=== PATIENT | female | born 1990 | race Caucasian/White ===

== ENCOUNTER 2016-06-01 13:54 | Outpatient (CLI) | payer MEDICAID ==
[~2016-06-01] VITALS: Ht 167.6 cm; Wt 81.6 kg
[2016-06-01] MEDS ORDERED: PREN1TAB62 PO (14:12)
[2016-06-01 14:14] VITALS: BP 120/60; PULSE 103; RESP 18; Ht 167.6 cm; Wt 81.6 kg
[2016-06-01 14:56] LABS: ADD UMIC YES; URINE BILIRUBIN (Dip) NEGATIVE (NEGATIVE); URINE BLOOD (Dip) NEGATIVE (NEGATIVE); URINE COLOR LT. YELLOW (YELLOW); URINE GLUCOSE (Dip) NEGATIVE (NEGATIVE); URINE KETONES (Dip) NEGATIVE (NEGATIVE); URINE LEUKOCYTE ESTERASE (Dip) TRACE (NEGATIVE); URINE NITRITE (Dip) NEGATIVE (NEGATIVE); URINE TOTAL PROTEIN (Dip) NEGATIVE (NEGATIVE); URINE UROBILINOGEN (Dip) 0.2 E.U./dL (0.1-1.0)
[2016-06-01 15:49] LABS: SQUAMOUS EPITHELIAL CELL,UR FEW; URINE RBCS 0-2 /HPF (0)
--- NOTE | 2016-06-01 16:37 | TRIAGE ---
OB Triage Datetime Report Generated by CPN: 06/01/2016 16:37 Datetime: 06/01/2016 16:00 Stage of : OB Triage Maternal Assessment Level of Consciousness: Fully Conscious Labor Evaluation Frequency: 1uc/hr Monitor Mode: External Duration (sec)2399: 50 Quality: Mild Resting Tone [place]: Relaxed Heart Rate Monitor Mode: ORDERS FOR LIMITED MONITORING Pain Assessment Pain Scale: 0 Pain Presence: None/Denies Pain Type: N/A Pain Goal: 3 Vaginal Exam Membrane Status: Intact Vaginal Bleeding: None Datetime: 06/01/2016 15:00 Stage of : OB Triage Maternal Assessment Level of Consciousness: Fully Conscious Labor Evaluation Frequency: NONE Monitor Mode: External Resting Tone [place]: Relaxed Heart Rate Monitor Mode: ORDERS FOR LIMITED MONITORING Pain Assessment Pain Scale: 0 Pain Presence: None/Denies Pain Type: N/A Pain Goal: 3 Vaginal Exam Membrane Status: Intact Vaginal Bleeding: None Datetime: 06/01/2016 14:11 Assessment Type: Triage Maternal Assessment Level of Consciousness: Fully Conscious DTR's/Clonus: DTRs 2+; No Clonus Headache: Denies Blurred Vision: No Respiratory Effort: Unlabored; Regular Rhythm; Equal Expansion Breath Sounds, Left: Clear and Equal Breath Sounds, Right: Clear and Equal Nausea/Vomiting: Denies RUQ Epigastric Pain: Denies Lower Extremities Edema: None Degree: None Upper Extremities Edema: None Degree: None Facial Edema: None Fall Risk Assessment History of Falling: (0) No Secondary Diagnosis: (0) No Ambulatory Aid: (0) Bedrest/Nurse Assist IV Therapy: (0) No Gait: (0) Normal/Bedrest/Immobile Mental Status: (0) Oriented to Own Ability Fall Score: 0 Fall Risk Score Definition: No Risk: No action required Datetime: 06/01/2016 14:10 Time of Arrival: 06/01/2016 13:50 EGA: 20.5 Arrived By: Ambulatory Arrived From: Home Chief Complaint: C/O CRAMPS SINCE 0600 Movement: Present Contractions: Irregular Rupture of Membranes: Denies Vaginal Bleeding: None Vaginal Discharge: Denies Recent Sexual Intercouse: Denies Abdominal Trauma: Not Applicable Patient Complaints: Cramping; Back Pain Time Provider Notified: 06/01/2016 14:25 Provider Notified: ALPA Initial Plan: UA, UCED, FHT'S, Datetime: 06/01/2016 14:05 Comments: FHT'S DOPPLED IN THE 150'S FOR 1 MINUTE.
--- NOTE | 2016-06-01 16:43 | PN ---
Date/Time of Note Date/Time of Note DATE: 06/01/16 TIME: 16:40 OB Subjective Subjective Subjective Laboratory Tests Test 06/01/16 14:00 Urine Bilirubin NEGATIVE Urine Clarity CLEAR Urine Color LT. YELLOW Urine Glucose NEGATIVE% Urine Hemoglobin NEGATIVE Urine Ketones NEGATIVE Urine Leukocyte Esterase TRACE Urine Microscopic RBC 0-2/HPF Urine Microscopic WBC 0-2/HPF Urine Nitrite NEGATIVE Urine Specific [place] 1.020 Urine Squamous Epithelial Cells FEW Urine Total Protein NEGATIVE Urine Urobilinogen 0.2 E.U./dL Urine pH 6.0 June 01, 2016 Triage consult The patient is 26 years old 4 para 0 3, with EDC of 10/15/2016 which makes her 20 weeks and 4 days now. She came to the triage area complaining of abdominal cramping no bleeding no excessive vaginal discharge on examination her ear nose throat appear to be normal neck is normal chest is clear abdomen is soft no evidence of contraction or tenderness however her areas of tenderness was described as epigastric as well as the lower abdomen. However on palpation we did not see any sign of tenderness her vital signs were stable blood pressure 120/60 pulse rate 103 temperature 98.9 test at the wound reactive urinalysis was normal placenta appears to be normal place no previa. The cervical length was 3.4 cm. With these finding patient was reassured and she was discharged home to be followed in the clinic . To return to the triage area in case of a again abdominal pain or vaginal bleeding End of dictation thank you DALIA GIRALDO MD Jun 01, 2016 16:43
--- NOTE | 2016-06-01 16:58 | RADRPT ---
PROCEDURE: Limited obstetric ultrasound CLINICAL INDICATION: labor TECHNIQUE: Multiple transverse and longitudinal grayscale images of the pelvis were obtained lazo sabdominally and endovaginally.. COMPARISON: same day FINDINGS: There is a single live intrauterine gestation in a vertex position with a heart rate of 139 bp m. The placenta is posterior without evidence of placental abruption or a placenta previa. The cervix is closed and measures 3.4 cm in length. RPTAT: AA IMPRESSION: Posterior placenta. The cervix is closed and measures 3.4 cm in length. Physician Ashley Date Time Electronically viewed and signed by Physician Ashley on 06/01/2016 16:58 /
== END 2016-06-01 16:45 | disposition home or self-care (01) ==
LOC: OBT 13:54 → L-D 13:55 → OBT 16:45
PROVIDERS: ATTEND Obstetrics & Gynecology
DX: O26.892 Other specified pregnancy related conditions, second trimester (principal); R10.13 Epigastric pain; R10.30 Lower abdominal pain, unspecified; O60.02 Preterm labor without delivery, second trimester; Z3A.20 20 weeks gestation of pregnancy
CPT/HCPCS: 76815; 76817; 81001; 81003; 87086; Z7500; G0463

== ENCOUNTER 2016-08-01 10:50 | Emergency (ER) | payer MEDICAID ==
[~2016-08-01] VITALS: Wt 84.5 kg
[~2016-08-01 10:50] MED LIST: PREN1TAB62 PO
[2016-08-01 11:53] LABS: ADD SCAN DIFF NO
[2016-08-01 12:00] LABS: ABNORMAL IP MESSAGE 1; BASOPHILS % 0.2 % (0.0-2.0); EOSINOPHILS % 0.3 % (0.0-7.0); HEMATOCRIT 34.5 % (37.0-47.0); HEMOGLOBIN 10.6 g/dl (12.0-16.0); LYMPHOCYTES # 2.1 10^3/ul (0.8-2.9); LYMPHOCYTES % 23.9 % (15.0-51.0); MEAN CORPUSCULAR HEMOGLOBIN 26.2 pg (29.0-33.0); MEAN CORPUSCULAR HGB CONC 30.7 g/dl (32.0-37.0); MEAN CORPUSCULAR VOLUME 85.4 fl (82.0-101.0); MEAN PLATELET VOLUME 12.5 fl (7.4-10.4); MONOCYTE # 0.5 10^3/ul (0.3-0.9); MONOCYTES % 6.3 % (0.0-11.0); NEUTROPHIL # 5.8 10^3/ul (1.6-7.5); NEUTROPHILS % 68.1 % (39.0-77.0); PLATELET COUNT 93 10^3/UL (140-415); RED BLOOD COUNT 4.04 10^6/ul (4.20-5.40); RED CELL DISTRIBUTION WIDTH 16.2 % (11.5-14.5); WHITE BLOOD COUNT 8.6 10^3/ul (4.8-10.8)
[2016-08-01 12:02] LABS: ADD UMIC NO; URINE BILIRUBIN (Dip) NEGATIVE (NEGATIVE); URINE BLOOD (Dip) NEGATIVE (NEGATIVE); URINE COLOR LT. YELLOW (YELLOW); URINE KETONES (Dip) NEGATIVE (NEGATIVE); URINE LEUKOCYTE ESTERASE (Dip) NEGATIVE (NEGATIVE); URINE NITRITE (Dip) NEGATIVE (NEGATIVE); URINE TOTAL PROTEIN (Dip) NEGATIVE (NEGATIVE); URINE UROBILINOGEN (Dip) 0.2 E.U./dL (0.1-1.0)
[2016-08-01 12:09] LABS: ALBUMIN 3.5 g/dl (3.3-4.9)
[2016-08-01 12:10] LABS: POTASSIUM 4.1 mmol/L (3.5-5.1)
[2016-08-01 12:12] LABS: BILIRUBIN,INDIRECT 0.1 mg/dl (0-1.1); BILIRUBIN,TOTAL 0.1 mg/dl (0.2-1.3); CREATININE 0.41 mg/dl (0.44-1.00)
[2016-08-01 12:13] LABS: CALCIUM 9.6 mg/dl (8.4-10.2)
--- NOTE | 2016-08-01 12:32 | RADRPT ---
PROCEDURE: US OB. CLINICAL INDICATION: Decreased movement TECHNIQUE: Multiple sonographic images of the pelvis were obtained. The images were reviewed on a PACS workstation. COMPARISON: Pelvic ultrasound to 06/01/1971 FINDINGS: The cervix is closed with a length of . There is a single viable intrauterine gestation. Cardiac activity is present with 152.3 beats per m inute. There is a cephalic presentation. Measurements were made in order to determine age. The results are as follows: BPD =7.6 cm; 30 weeks 3 days HC =28.9 cm; 31-week 68 AC =26.25 cm; 30 weeks 3 days FL =5.85 cm; 30 weeks 4 day. Estimated gestational age of approximately 30 weeks 6 days The estimated date of delivery is 10/04/2016. The EFW = 1599 g plus or minus 240 g . The placenta is right lateral. There is no evidence for an abruption or placenta previa. There is a normal amount of amniotic fluid with an JUMANA = 13.7 cm. There are no adnexal masses.. IMPRESSION: Single viable intrauterine gestation of approximately 30 weeks 6 days. The estimated date of delive ry is 10/04/2016 . .Marian Tena MD, Date Time Electronically viewed and signed by .Marian Tena MD, on 08/01/2016 12:32 .M/
--- NOTE | 2016-08-01 12:42 | ERD ---
ER Documentation Chief Complaint Date/Time DATE: 08/01/16 TIME: 12:37 Chief Complaint palpatations, low blood pressure, also states no movement, see note HPI This is a 26-year-old female that presents to the ER stating that she felt heart palpitations and lightheaded earlier today. Patient works as a medical technologist chief and decided to take her blood pressure, she said it was 72/92. She had her coworker take her blood pressure and it was 140/90. Patient also measured her own heart rate and states that it was up into the 120s. Patient denies any loss of consciousness. She denies any chest pain. Patient states that at the time of the symptoms he did feel short of breath. Patient denies any recent travel. She denies any leg redness or swelling. Patient denies any vaginal bleeding. A3. Patient does admit to some urinary frequency and dysuria. She denies any flank pain. She denies any nausea vomiting or diarrhea. ROS 12 point review of systems was done, all negative except per HPI. Medications Home Meds Reported Medications Vit-Iron Fumarate-FA ( Vitamin Tablet) 1 Each Tablet, 1 TAB PO DAILY, TAB 06/01/16 Allergies Allergies: Coded Allergies: No Known Allergy (Unverified , 06/01/16) PMhx/Soc Medical and Surgical Hx: pt denies Medical Hx, pt denies Surgical Hx Physical Exam Vitals Vital Signs Date Time Temp Pulse Resp B/P Pulse Ox O2 Delivery O2 Flow Rate FiO2 08/01/16 10:52 98.5 94 20 127/69 100 Physical Exam GENERAL: The patient is well developed and appropriate for usual state of health , in no apparent distress. HEENT: Atraumatic. CHEST: Clear to auscultation bilaterally. There are no rales, wheezes or rhonchi. HEART: Regular rate and rhythm. No murmurs, clicks, rubs or gallops. ABDOMEN: Soft, nontender and nondistended. Good bowel sounds. No rebound or guarding. No gross peritonitis. No gross organomegaly or masses. No Peterson sign or McBurney point tenderness. BACK: No midline or flank tenderness. NEURO: Alert and oriented. SKIN: There is no apparent rash or petechia. The skin is warm and dry. Result Diagram: 08/01/16 1120 08/01/16 1120 Results 24 hrs Laboratory Tests Test 08/01/16 11:20 White Blood Count 8.610^3/ul Red Blood Count 4.0410^6/ul Hemoglobin 10.6g/dl Hematocrit 34.5% Mean Corpuscular Volume 85.4fl Mean Corpuscular Hemoglobin 26.2pg Mean Corpuscular Hemoglobin Concent 30.7g/dl Red Cell Distribution Width 16.2% Platelet Count 9310^3/UL Mean Platelet Volume 12.5fl Neutrophils % 68.1% Lymphocytes % 23.9% Monocytes % 6.3% Eosinophils % 0.3% Basophils % 0.2% Nucleated Red Blood Cells % 0.0/100WBC Neutrophils # 5.810^3/ul Lymphocytes # 2.110^3/ul Monocytes # 0.510^3/ul Eosinophils # 0.010^3/ul Basophils # 0.010^3/ul Nucleated Red Blood Cells # 0.010^3/ul Urine Color LT. YELLOW Urine Clarity CLEAR Urine pH 6.0 Urine Specific [place] 1.020 Urine Ketones NEGATIVE Urine Nitrite NEGATIVE Urine Bilirubin NEGATIVE Urine Urobilinogen 0.2 E.U./dL Urine Leukocyte Esterase NEGATIVE Urine Hemoglobin NEGATIVE Urine Glucose 0.25%% Urine Total Protein NEGATIVE Sodium Level 136mmol/L Potassium Level 4.1mmol/L Chloride Level 103mmol/L Carbon Dioxide Level 23mmol/L Anion Gap 14 Blood Urea Nitrogen 8mg/dl Creatinine 0.41mg/dl Glucose Level 83mg/dl Calcium Level 9.6mg/dl Total Bilirubin 0.1mg/dl Direct Bilirubin 0.00mg/dl Indirect Bilirubin 0.1mg/dl Aspartate Amino Transf (AST/SGOT) 23IU/L Alanine Aminotransferase (ALT/SGPT) 32IU/L Alkaline Phosphatase 111IU/L Total Protein 7.0g/dl Albumin 3.5g/dl Globulin 3.50g/dl Albumin/Globulin Ratio 1.00 Beta HCG, Quantitative 97370.0mIU/ml Procedures/MDM This is a 26-year-old female presents to the ER with heart palpitations and according to her low blood pressure. Upon triage patient's vital signs are completely normal with no evidence of tachycardia, hypotension or hypoxemia. Patient is extremely well-appearing. She has denied any vaginal bleeding, however stated that she did not feel the baby moving. Because of this ultrasound was done and was completely normal. EKG was also done and read by Dr. Barcenas, [address] elevation no T-wave inversion. At this time chest x- ray was deferred as patient is and patient prefers not to get x-ray secondary to radiation exposure. Patient to have anemia, however hemoglobin is 6. There is no evidence of electrolyte abnormality. Patient does not have hyper or hypoglycemia at this time. Suspicion for pulmonary embolism is low at this time. At this time etiology of perceived palpitations and hypertension is unknown however there is no evidence of these symptoms throughout ER course. Patient needs to follow-up with her primary care doctor within 1-2 days or return to ER sooner if symptoms worsen. My medical decision making was shared with the patient she understands and agrees with plan. Departure Diagnosis: Primary Impression: Palpitations Condition: Stable SAMUEL MEJIA Aug 01, 2016 12:42
== END 2016-08-01 13:13 | disposition home or self-care (01) ==
LOC: FTE 11:28
DX: O99.89 Other specified diseases and conditions complicating pregnancy, childbirth and the puerperium (principal); R00.2 Palpitations; Z3A.30 30 weeks gestation of pregnancy
CPT/HCPCS: 36415; 76805; 80053; 81003; 84702; 85025; 86900; 86901; 93005

== ENCOUNTER 2016-10-01 12:13 | Inpatient (IN) | payer MEDICAID ==
[~2016-10-01] VITALS: Ht 170.2 cm; Wt 90.6 kg
[2016-10-01 12:43] VITALS: Ht 170.2 cm; Wt 90.6 kg
[2016-10-01 12:44] VITALS: BP 122/65; PULSE 83
--- NOTE | 2016-10-01 17:46 | NSTRPT ---
NST Information Datetime Report Generated by CPN: 10/01/2016 17:45 Datetime: 10/01/2016 10:40 NST Information EGA: 38.1 Test Number: 3 Time on Monitor: 10/01/2016 11:26 Time off Monitor: 10/01/2016 11:53 NST Duration (Min): 27 Reason for NST: Other Reason for NST Other: LGA Test and Monitor Explained: Monitor Explained; Test Explained; Verbalized Understanding Pulse: 82 Resp: 16 SBP: 119 DBP: 71 Test Evaluation NST Interventions: PO Hydration; Acoustic Stimulation Patient States Movement: Present Contraction Frequency: x2, denies FHR Baseline : 150 Variability: Minimal - <=5bpm Accelerations: 10X10 Decelerations: None FHR Category: Category II NST Results: Non-Reactive Comments: Pt to U/S, cephalic, jumana 11.9 Dr. Ball reviewed heart rate strip and recommends extended monitoring in OB Triage. Dr. Morgan called and informed of Dr. Ball's recommendations. Dr. Morgan agrees with recommendations. Ord ers received to send pt to OB Triage now for extended monitoring. Report called to Ambika YAN O B Triage. POC discussed with pt. Pt verbalizes understanding. Follow-up NST/JUMANA appointment given. 1157-Pt to OB Triage now. Electronically Signed By E-Signature: with User ID: [id number], Addendum/Amendment: Patient with decreased FHT variability, few accelerations. Would perform exten ded monitoring. If no resolution of the monitor pattern, would consider labor induction. Datetime: 09/28/2016 09:10 NST Information EGA: 37.5 NST Duration (Min): 37 Datetime: 09/24/2016 09:41 NST Information EGA: 37.1 NST Duration (Min): 21
[2016-10-01] MEDS ORDERED: LACTATED RINGER'S 1,000 ML IV PRN (19:30)
[2016-10-01] MEDS ORDERED: MISOPROSTOL 200 MCG TAB PR PRN (19:30)
[2016-10-01] MEDS ORDERED: METHYLERGONOVINE 0.2 MG INJ IM PRN (19:30)
[2016-10-01] MEDS ORDERED: CARBOPROST 250 MCG INJ IM PRN (19:30)
[2016-10-01] MEDS ORDERED: LIDOCAINE 1% (MPF) 30 ML INJ INJ PRN (19:30)
[2016-10-01] MEDS ORDERED: OXYTOCIN 30 UNITS/LR 500 ML IV SCH ×2 (19:30)
[2016-10-01] MEDS ORDERED: OXYTOCIN 30 UNITS/LR 500 ML IV PRN (19:30)
[2016-10-01] MEDS ORDERED: BUTORPHANOL 2 MG INJ IV PRN ×2 (19:30)
[2016-10-01] MEDS: LACTATED RINGER'S 1,000 ML IV SCH (20:37)
[2016-10-01] MEDS ORDERED: AMPICILLIN 2 GM/NS (PMX) 100 ML IV ONE (21:00)
[2016-10-01] MEDS ORDERED: MINERAL OIL LIGHT 10 ML VIAL TOP ONE (21:00)
[2016-10-01 21:02] LABS: ADD SCAN DIFF NO
[2016-10-01 21:04] LABS: ABNORMAL IP MESSAGE 1; HEMATOCRIT 38.5 % (37.0-47.0); HEMOGLOBIN 12.1 g/dl (12.0-16.0); MEAN CORPUSCULAR HEMOGLOBIN 25.7 pg (29.0-33.0); MEAN CORPUSCULAR HGB CONC 31.4 g/dl (32.0-37.0); MEAN CORPUSCULAR VOLUME 81.7 fl (82.0-101.0); PLATELET COUNT 99 10^3/UL (140-415); RED BLOOD COUNT 4.71 10^6/ul (4.20-5.40); RED CELL DISTRIBUTION WIDTH 19.8 % (11.5-14.5); WHITE BLOOD COUNT 8.1 10^3/ul (4.8-10.8)
[2016-10-01 21:19] LABS: INR 0.91; PROTIME 12.2 Sec (12.2-14.2)
[2016-10-01 21:20] LABS: PARTIAL THROMBOPLASTIN TIME 28.9 Sec (25.0-35.0)
[2016-10-01 22:20] LABS: EOSINOPHILS # 0.2 10^3/ul (0.0-0.5); LYMPHOCYTES # 2.2 10^3/ul (0.8-2.9); MONOCYTE # 0.6 10^3/ul (0.3-0.9); NEUTROPHIL # 5.1 10^3/ul (1.6-7.5); PLATELET ESTIMATE PLT APPEAR DECREASED
--- NOTE | 2016-10-01 22:41 | RADRPT ---
PROCEDURE: US OB. CLINICAL INDICATION: Macrosomia. TECHNIQUE: Multiple sonographic images of the pelvis were obtained. Transabdominal imaging only w as performed. The images were reviewed on a PACS workstation. COMPARISON: 09/28/2016. FINDINGS: Single live intrauterine is identified. Cardiac activity is present with 148 beats per mi nute. There is a vertex presentation. Measurements: BPD = 41 weeks 2 days. HC = 41 weeks 5 days. AC = 39 weeks 2 days. FL = there 6 weeks 2 days. Estimated gestational age of approximately 39 weeks of 5 days. The EFW = 3705 g which is at the 57th percentile. The placenta is anterior fundal with calcifications. No amniotic fluid measurement was obtained although the inner fluid appears slightly complex. IMPRESSION: Single live intrauterine gestation of approximately 39 weeks 5 days. No amniotic fluid index obtain ed. Fluid appears slightly complex suggesting meconium or infection. RPTAT: HMVK .Jerzy Bullock MD, Date Time Electronically viewed and signed by .Jerzy Bullock MD, MD on 10/01/2016 22:40 .K/
--- NOTE | 2016-10-01 22:44 | RADRPT ---
PROCEDURE: OB ultrasound for biophysical profile CLINICAL INDICATION: Macrosomia. TECHNIQUE: Multiple sonographic images of the gravid uterus performed. The images were reviewed on a PACS workstation. COMPARISON: 09/28/2016 FINDINGS: A single live intrauterine is identified with heart rate of 137 bpm. Fet us is in a cephalic presentation. Placenta is located anterior fundal. Biophysical profile: breathing movement = 2/2 tone = 2/2 motion = 2/2 JUMANA = 2/2 JUMANA = 16.8 cm. Amniotic fluid is echogenic IMPRESSION: 1. Single live intrauterine gestation. 2. Biophysical profile = 8/8. 3. JUMANA = 16.8 cm. 4. Echogenic amniotic fluid suggesting meconium, hemorrhage or infection. RPTAT: HMVK .Jerzy Bullock MD, MD Date Time Electronically viewed and signed by .Jerzy Bullock MD, MD on 10/01/2016 22:43 .K/
[2016-10-01] MEDS: OXYTOCIN 30 UNITS/LR 500 ML IV SCH (23:50)
[2016-10-02] MEDS: LACTATED RINGER'S 1,000 ML IV SCH ×5 (00:06→18:10)
[2016-10-02] MEDS ORDERED: AMPICILLIN 1 GM/NS (PMX) 50 ML IV SCH (01:00)
[2016-10-03] MEDS: LACTATED RINGER'S 1,000 ML IV SCH ×4 (02:18→23:18)
[2016-10-03 09:50] LABS: ADD SCAN DIFF NO
[2016-10-03 09:54] LABS: ABNORMAL IP MESSAGE 1; BASOPHILS % 0.2 % (0.0-2.0); EOSINOPHILS % 0.5 % (0.0-7.0); HEMATOCRIT 34.3 % (37.0-47.0); HEMOGLOBIN 10.6 g/dl (12.0-16.0); MEAN CORPUSCULAR HEMOGLOBIN 25.7 pg (29.0-33.0); MEAN CORPUSCULAR HGB CONC 30.9 g/dl (32.0-37.0); MEAN CORPUSCULAR VOLUME 83.1 fl (82.0-101.0); MONOCYTE # 0.4 10^3/ul (0.3-0.9); MONOCYTES % 6.5 % (0.0-11.0); NEUTROPHIL # 3.5 10^3/ul (1.6-7.5); NEUTROPHILS % 58.5 % (39.0-77.0); PLATELET COUNT 82 10^3/UL (140-415); RED BLOOD COUNT 4.13 10^6/ul (4.20-5.40); RED CELL DISTRIBUTION WIDTH 20.1 % (11.5-14.5)
--- NOTE | 2016-10-03 15:27 | HP ---
Date/Time of Note Date/Time of Note DATE: 10/03/16 TIME: 15:08 OB - History Hx of Present Free Text/Dictation 26 y.o A3(sab) at 38w sent from antepartum test room for extended observation for q NST also u/s revealed echogenic fluid noted and placental calcification on 09/24/16 JUMANA 11.9 1hr gtt abn but 3hr GTT nl platelet count in jan 111 jan 31 97 115 on admission 99 EFM u.c5-8 VE 2 50 -3 admitted for augmentation Chief Complaint: for augmentation Estimated Due Date: Oct 14, 2016 : 4 Para: 0 Spontaneous : 3 Therapeutic : 0 Care: Good Care Ultrasounds: Normal mid trimester US Obstetrical Complications: None Other Concerns: thrombocytopenia Past Family/Social History * Past Medical, Surgical, Family and Obstetric Histories reviewed from chart. Blood Type: A+ Rubella: immune RPR/VDRL: Negative GBS Status: Negative HBsAG: Negative OB Admission Exam Vital Signs Vital Signs Vital Signs Date Time Temp Pulse Resp B/P Pulse Ox O2 Delivery O2 Flow Rate FiO2 10/01/16 12:44 98.1 83 122/65 Physical Exam HEENT: WNL Heart: Rhythm Normal Lungs: Clear, Equal Abdomen: WNL Extremities: Normal Reflexes: Normal Cervical Dilatation: 2cm Effacement: 50% Station: -3 Membranes: Intact Amniotic Fluid: Unevaluable Heart Rate: 140's Accelerations: Accelerations Present Decelerations: No Decelerations Varibility: Moderate Contractions on Admission: 6-10 Minutes Apart Intensity: Mild Last 72 hours Lab Results CBC & BMP 10/01/16 20:30 10/03/16 09:18 OB Assessment/Plan Reason for admission: other (in early labor) Induction Method: per Pitocin Protocol AGATHA YUEN MD Oct 03, 2016 15:23
--- NOTE | 2016-10-03 15:31 | QN ---
Documentation Comment cervix softer more strechable 2-3 50% -3 yesterday attempted to see fluid color and to fascilate the labor but failed ARM done with good fundal pressure ,revealed large amount of clear amniotic fluid internal lead inserted pitocin was d/cd AGATHA YUEN MD Oct 03, 2016 15:31
[2016-10-03] MEDS: OXYTOCIN 30 UNITS/LR 500 ML IV SCH (17:58)
[2016-10-03] MEDS: FAMOTIDINE 20 MG INJ IV PRN (22:25)
[2016-10-04] MEDS ORDERED: AMPICILLIN 2 GM/NS (PMX) 100 ML IVPB ONE (03:00)
[2016-10-04] MEDS ORDERED: METHYLERGONOVINE 0.2 MG INJ ONE (07:00)
[2016-10-04] MEDS ORDERED: CARBOPROST 250 MCG INJ ONE (07:00)
[2016-10-04] MEDS: AMPICILLIN 1 GM/NS (PMX) 50 ML IVPB SCH ×3 (07:27→17:00)
[2016-10-04] MEDS: LACTATED RINGER'S 1,000 ML IV SCH ×3 (09:43→15:37)
[2016-10-04] MEDS: FAMOTIDINE 20 MG INJ IV PRN (09:47)
[2016-10-04 11:44] LABS: ADD SCAN DIFF NO
[2016-10-04 11:49] LABS: ABNORMAL IP MESSAGE 1; BASOPHILS % 0.2 % (0.0-2.0); EOSINOPHILS % 0.2 % (0.0-7.0); HEMATOCRIT 34.8 % (37.0-47.0); HEMOGLOBIN 10.6 g/dl (12.0-16.0); LYMPHOCYTES # 1.6 10^3/ul (0.8-2.9); LYMPHOCYTES % 15.8 % (15.0-51.0); MEAN CORPUSCULAR HEMOGLOBIN 25.4 pg (29.0-33.0); MEAN CORPUSCULAR HGB CONC 30.5 g/dl (32.0-37.0); MEAN CORPUSCULAR VOLUME 83.3 fl (82.0-101.0); MONOCYTE # 0.6 10^3/ul (0.3-0.9); MONOCYTES % 5.7 % (0.0-11.0); NEUTROPHILS % 77.8 % (39.0-77.0); RED BLOOD COUNT 4.18 10^6/ul (4.20-5.40); RED CELL DISTRIBUTION WIDTH 19.9 % (11.5-14.5); WHITE BLOOD COUNT 10.3 10^3/ul (4.8-10.8)
[2016-10-04 11:56] LABS: PLATELET COUNT 74 10^3/UL (140-415)
[2016-10-04 12:08] LABS: INR 0.96; PROTIME 12.8 Sec (12.2-14.2)
[2016-10-04 12:09] LABS: PARTIAL THROMBOPLASTIN TIME 29.2 Sec (25.0-35.0)
[2016-10-04 13:43] LABS: PLATELET ESTIMATE PLT APPEAR DECREASED
[2016-10-04] MEDS ORDERED: CEFAZOLIN 2 GM/50 ML (PMX) 50 ML IV SCH (15:00)
[2016-10-04] MEDS ORDERED: OXYTOCIN 30 UNITS/LR 500 ML IV SCH (15:00)
[2016-10-04] MEDS ORDERED: MISOPROSTOL 200 MCG TAB PR PRN ×2 (15:00→22:30)
[2016-10-04] MEDS ORDERED: CARBOPROST 250 MCG INJ IM PRN ×2 (15:00→22:30)
[2016-10-04] MEDS ORDERED: OXYTOCIN 30 UNITS/LR 500 ML IV PRN ×2 (15:00→22:30)
[2016-10-04] MEDS ORDERED: METHYLERGONOVINE 0.2 MG INJ IM PRN ×2 (15:00→22:30)
[2016-10-04] MEDS ORDERED: morphine SULFATE/PF (10 MG/10 ML) INJ ONE (16:27)
[2016-10-04] MEDS: CEFAZOLIN 2 GM/50 ML (PMX) 50 ML IVPB SCH (16:36)
[2016-10-04] MEDS ORDERED: METOCLOPRAMIDE 10 MG INJ ONE (16:41)
[2016-10-04] MEDS ORDERED: OXYTOCIN 30 UNITS/LR 500 ML IV ONE ×2 (16:41→17:27)
[2016-10-04] MEDS ORDERED: FENTAnyl 50 MCG/ML VIAL ONE (17:11)
[2016-10-04] MEDS ORDERED: PROPOFOL 20 ML ONE (17:13)
[2016-10-04] MEDS ORDERED: NALOXONE (0.4 MG/ML) INJ IV PRN (18:30)
[2016-10-04] MEDS ORDERED: DIPHENHYDRAMINE 50 MG INJ IV PRN ×2 (18:30→22:30)
[2016-10-04] MEDS ORDERED: ONDANSETRON 4 MG INJ IV PRN ×2 (18:30→22:30)
[2016-10-04] MEDS ORDERED: HYDROmorphONE 1 MG/ML SYG IV PRN ×2 (18:30)
--- NOTE | 2016-10-04 18:50 | OPR ---
Operative Report Planned Procedure Procedure date Oct 04, 2016 Procedure(s) primary low transverse section Performed by: AGATHA YUEN MD Assisting provider: DALIA GIRALDO MD Anesthesiologist: CATARINA VERGARA MD Pre-procedure diagnosis IUP 38w4d failure to progress CATII ( X1 variable deceleration down to 60 ) idiopathic thrombocytopenia Procedure Description Under satisfactory [] anesthesia, the patient was prepped and draped and placed in a supine position, tilted to the left. Pfannenstiel incision was made, carried through the subcutaneous tissue. Bleeders brought under control with electrocautery. Fascia incised to the length of the incision. Rectus muscles from the fascia, divided midline. Peritoneum exposed, entered through a transverse incision. Exploration of abdomen revealed gravid uterus. transverse incision was made above the uterovesical reflexion .Transverse incision was made in the lower segment of the uterus. Amniotic sac ruptured. revealed clear amniotic fluid , no foul odor[] normal male was delivered with assist kiwi only X2 quick ] Nasal oropharyngeal suction was performed. cord was delayed clamped and cu The baby was handed to the team for immediate attention. The placenta was delivered manually intact. Uterine cavity was cleaned with dry sponge and uterus was exteriolized. placena was sent to pathology duto prolong ruptured membrane and also requested for culture Uterus closed in 2 layers using 1ch gut abd 0 chgut[] in continuous fashion uterus relocated to abdominal cavity . Peritoneal cavity irrigated with warm saline. Sponge, needle and instrument count reported to be correct rechecked the uterine incisional site for bleeder which was intact uterus was atonic methergine 0.2 mg given. Abdominal peritoneum closed with och gut[] continuously. Rectus muscle approximated with []0ch gut . Fascia closed with []1 vicryl,in 2x segment, subcutaneous tissue were irrigated with water and this layer was closedwith )) plain and skin closed with insorb Estimated blood loss []1000cc including blood clot which was removed after surgery with fundal pressure. pressure dresing applied. Urine bag contained [ ]200mL of urine Post-Procedure Findings: Live Baby [], Apgars 8] and 9[], weight [], position [lot], [] presentation [] cord.arround shouder Specimen description placenta Complications: None Physician Certification I, the undersigned physician, hereby certify that I have discussed the procedure described in this consent form with this patient (or the patient's legal signs and displays sales representative), including: * The risk and benefits of the procedure; * Any adverse reactions that may reasonably be expected to occur; * Any alternative efficacious methods of treatment which may be medically viable ; * The potential problems that may occur during recuperation; * Potential for blood transfusion and associated risks/benefits; and * Any research or economic interest I may have regarding this treatment. I further certify that the patient/legally responsible person was encouraged to ask question and that all questions were answered. AGATHA YUEN MD Oct 04, 2016 18:48
--- NOTE | 2016-10-04 18:57 | QN ---
Documentation Comment preop note after lengthy time of pitocin augmentation no significant change on cervical dilatation or descent or effacement only reached 3-4cm 50% -3 had profound variable deceleration down to 60's even prior this event patient was informed poss of informed and will be reexamined at 1700 but prior to this tracing down to 60's primary section prepared for mainly FTP and prolongedruptured membrane and Cat II tracing AGATHA YUEN MD Oct 04, 2016 18:57
[2016-10-04 22:00] VITALS: BP 134/65; PULSE 97; RESP 20
[2016-10-04] MEDS ORDERED: OXYCODONE/ACETAMINOPHEN (5/325) TAB PO PRN (22:30)
[2016-10-04] MEDS ORDERED: LANOLIN 7 GM TUBE TOP PRN (22:30)
[2016-10-04] MEDS ORDERED: ZOLPIDEM 5 MG TAB PO PRN (22:30)
[2016-10-04] MEDS: HYDROmorphONE 1 MG/ML SYG IV PRN (22:50)
[2016-10-04] MEDS: OXYTOCIN 30 UNITS/LR 500 ML IV SCH (23:42)
[2016-10-05] VITALS: BP 136/58; PULSE 100; RESP 20
[2016-10-05] MEDS: LACTATED RINGER'S 1,000 ML IV SCH ×4 (03:40→18:00)
[2016-10-05 03:55] VITALS: BP 137/67; PULSE 105; RESP 20
[2016-10-05] MEDS: IBUPROFEN 600 MG TAB PO SCH ×4 (06:00→17:51)
[2016-10-05] MEDS: CEFAZOLIN 2 GM/50 ML (PMX) 50 ML IVPB SCH ×3 (06:06→22:08)
[2016-10-05 07:58] LABS: ADD SCAN DIFF NO
[2016-10-05 08:03] LABS: ABNORMAL IP MESSAGE 1; BASOPHILS % 0.1 % (0.0-2.0); EOSINOPHILS % 0.2 % (0.0-7.0); HEMATOCRIT 28.9 % (37.0-47.0); HEMOGLOBIN 9.3 g/dl (12.0-16.0); LYMPHOCYTES # 1.9 10^3/ul (0.8-2.9); LYMPHOCYTES % 15.1 % (15.0-51.0); MEAN CORPUSCULAR HEMOGLOBIN 26.2 pg (29.0-33.0); MEAN CORPUSCULAR HGB CONC 32.2 g/dl (32.0-37.0); MEAN CORPUSCULAR VOLUME 81.4 fl (82.0-101.0); MONOCYTE # 0.6 10^3/ul (0.3-0.9); MONOCYTES % 5.1 % (0.0-11.0); NEUTROPHIL # 9.9 10^3/ul (1.6-7.5); NEUTROPHILS % 79.1 % (39.0-77.0); PLATELET COUNT 83 10^3/UL (140-415); RED BLOOD COUNT 3.55 10^6/ul (4.20-5.40); RED CELL DISTRIBUTION WIDTH 19.8 % (11.5-14.5); WHITE BLOOD COUNT 12.5 10^3/ul (4.8-10.8)
[2016-10-05 08:15] VITALS: BP 120/73; PULSE 103; RESP 18
[2016-10-05] MEDS: SENNA/DOCUSATE NA (8.6MG/50MG) TAB PO SCH ×2 (08:38→20:22)
[2016-10-05] MEDS: HYDROmorphONE 1 MG/ML SYG IV PRN ×2 (11:24→14:14)
[2016-10-05] MEDS: OXYTOCIN 30 UNITS/LR 500 ML IV SCH (11:30)
[2016-10-05 12:30] VITALS: BP 123/60; PULSE 102; RESP 20
[2016-10-05 16:30] VITALS: BP 124/66; PULSE 104; RESP 20
[2016-10-05] MEDS: OXYCODONE/ACETAMINOPHEN (5/325) TAB PO PRN (17:52)
[2016-10-05 20:00] VITALS: BP 131/68; PULSE 94; RESP 18
--- NOTE | 2016-10-05 21:26 | PN ---
Date/Time of Note Date/Time of Note DATE: 10/05/16 TIME: 21:18 Assessment/Plan VTE Prophylaxis VTE Prophylaxis Intervention: ambulation Lines/Catheters IV Catheter Type (from Nrsg): Peripheral IV Subjective 24 Hr Interval Summary Free Text/Dictation Anesthesia note: A 26 year female with thrombocytopenia under spinal with duramorph pod# 1 is doing fine . pain is cotrolled no ba k pain , irritation or any sensory or motor deficit. no n/v, headache, itching. Exam/Review of Systems Vital Signs Vitals Vital Signs Date Time Temp Pulse Resp B/P Pulse Ox O2 Delivery O2 Flow Rate FiO2 10/05/16 16:30 99.4 104 20 124/66 Room Air 10/05/16 09:14 95 21 Intake and Output 10/04/16 10/04/16 10/05/16 15:00 23:00 07:00 Intake Total 859 ml 825 ml 800 ml Output Total 900 ml 300 ml 650 ml Balance -41 ml 525 ml 150 ml Results Result Diagram: 10/05/16 0750 Results 24 hrs Laboratory Tests Test 10/05/16 07:50 White Blood Count 12.5 #H Red Blood Count 3.55 L Hemoglobin 9.3 L Hematocrit 28.9 L Mean Corpuscular Volume 81.4 L Mean Corpuscular Hemoglobin 26.2 L Mean Corpuscular Hemoglobin Concent 32.2 Red Cell Distribution Width 19.8 H Platelet Count 83 L Mean Platelet Volume Neutrophils % 79.1 H Lymphocytes % 15.1 Monocytes % 5.1 Eosinophils % 0.2 Basophils % 0.1 Nucleated Red Blood Cells % 0.0 Neutrophils # 9.9 H Lymphocytes # 1.9 Monocytes # 0.6 Eosinophils # 0.0 Basophils # 0.0 Nucleated Red Blood Cells # 0.0 Medications Medications Current Medications Lactated Ringer's 1,000 ml @ 2,000 mls/hr Q30M PRN IV PRE-EPIDURAL BOLUS; Start 10/01/16 at 19:30 Cefazolin Sodium/ Dextrose (Ancef 2 Gm/50 ml (Pmx)) 50 ml @ 100 mls/hr Q8 IVPB Last administered on 10/05/16t 14:14; Admin Dose 100 MLS/HR; Start 10/04/16 at 22:00 Oxycodone/ Acetaminophen (Percocet (5/ 325)) 1 tab Q4H PRN PO PAIN LEVEL 4-6; Start 10/04/16 at 22:30 Oxycodone/ Acetaminophen (Percocet (5/ 325)) 2 tab Q4H PRN PO PAIN LEVEL 7-10 Last administered on 10/05/16 17:52; Admin Dose 2 TAB; Start 10/04/16 at 22:30 Ibuprofen (Motrin) 600 mg Q6 PO Last administered on 10/05/16 17:51; Admin Dose 600 MG; Start 10/05/16 at 00:00 Simethicone (Mylicon) 160 mg Q8H PRN PO DISTENSION/GAS/BLOATING Last administered on 10/05/16 10:31; Admin Dose 160 MG; Start 10/04/16 at 22:30 Senna/Docusate Sodium (Senokot-S) 1 tab BID PO Last administered on 10/05/16 20:22; Admin Dose 1 TAB; Start 10/05/16 at 09:00 Diphtheria/ Tetanus/Acell Pertussis 0.5 ml 0.5 ml ONCE ONCE IM* ; Start at 09:00; Stop 10/07/16 at 09:01 Oxytocin/Lactated Ringer's 500 ml @ 0 mls/hr ONCE PRN IV For Hemorrhage Management; Start 10/04/16 at 22:30 Methylergonovine Maleate (Methergine) 0.2 mg ONCE PRN IM VAGINAL BLEEDING; Start 10/04/16 at 22:30 Carboprost Tromethamine (Hemabate) 250 mcg ONCE PRN IM VAGINAL BLEEDING; Start 10/04/16 at 22:30 Misoprostol (Cytotec) 1,000 mcg ONCE PRN MA VAGINAL BLEEDING; Start 10/04/16 at 22:30 Diphenhydramine HCl (Benadryl) 25 mg Q6H PRN IV PRURITUS; Start 10/04/16 at 22: 30 Ondansetron HCl (Zofran Inj) 4 mg Q6H PRN IV NAUSEA AND/OR VOMITING; Start at 22:30 Zolpidem Tartrate 10 mg 10 mg QHS PRN PO INSOMNIA; Start 10/04/16 at 22:30 Lactated Ringer's (Lr) 1,000 ml @ 125 mls/hr Q8H IV ; Start 10/05/16 at 18:00 CATARINA VERGARA MD Oct 05, 2016 21:26
--- NOTE | 2016-10-05 23:16 | PN ---
Date/Time of Note Date/Time of Note DATE: 10/05/16 TIME: 23:12 OB Subjective Subjective Subjective passing flatus tolerating diet well urination ok OB Objective Objective Objective vss afebrile abdomen soft wound dry lochia min exr edematous calf neg for twenderness OB Assessment/Plan Other Assessment: stable post c/s #1 Other plan: as ordered AGATHA YUEN MD Oct 05, 2016 23:16
[2016-10-06] MEDS: IBUPROFEN 600 MG TAB PO SCH ×5 (00:27→20:34)
[2016-10-06] MEDS: OXYCODONE/ACETAMINOPHEN (5/325) TAB PO PRN ×3 (00:32→17:10)
[2016-10-06 04:25] VITALS: BP 116/60; PULSE 79; RESP 18
[2016-10-06] MEDS: CEFAZOLIN 2 GM/50 ML (PMX) 50 ML IVPB SCH ×2 (06:10→13:52)
[2016-10-06] MEDS: LACTATED RINGER'S 1,000 ML IV SCH ×2 (07:43→19:44)
[2016-10-06 08:30] VITALS: BP 123/66; PULSE 79; RESP 19
[2016-10-06] MEDS: SENNA/DOCUSATE NA (8.6MG/50MG) TAB PO SCH ×2 (09:21→20:34)
--- NOTE | 2016-10-06 12:16 | PN ---
Date/Time of Note Date/Time of Note DATE: 10/06/16 TIME: 12:13 OB Subjective Subjective Subjective tolerating diet urination ok no .bm yet OB Objective Objective Objective vss afebrile abdoment soft wound dry lochia min ext edematous calf neg for tenderness HEENT: WNL Heart: Rhythm Normal Lungs: Clear, Equal Abdomen: WNL Extremities: Normal Reflexes: Normal OB Assessment/Plan Other Assessment: stable post pc/s #2 Other plan: d/c IV D/C AB AGATHA YUEN MD Oct 06, 2016 12:16
[2016-10-06 16:00] VITALS: BP 138/78; PULSE 92; RESP 19
[2016-10-06 20:30] VITALS: BP 126/76; PULSE 92; RESP 20
[2016-10-07 03:45] VITALS: BP 131/73; PULSE 87; RESP 17
[2016-10-07] MEDS: IBUPROFEN 600 MG TAB PO SCH ×3 (06:00→18:13)
[2016-10-07 08:45] VITALS: BP 103/55; PULSE 80; RESP 18
[2016-10-07] MEDS ORDERED: DIPHTH/TET/ACEL PERTUSS (ADULT) 0.5 ML VIAL IM* ONE (09:00)
[2016-10-07] MEDS: SENNA/DOCUSATE NA (8.6MG/50MG) TAB PO SCH ×2 (09:00→20:53)
[2016-10-07] MEDS: LACTATED RINGER'S 1,000 ML IV SCH ×2 (10:00→18:00)
--- NOTE | 2016-10-07 19:06 | PN ---
Date/Time of Note Date/Time of Note DATE: 10/07/16 TIME: 19:03 OB Subjective Subjective Subjective had bm no c/o OB Objective Objective Objective vss afebrile abdomen soft wound dry lochia min calf no tenderness OB Assessment/Plan Other Assessment: stable POD#3 Other plan: discharge home in am AGATHA YUEN MD Oct 07, 2016 19:06
[2016-10-07 19:45] VITALS: BP 115/70; PULSE 85; RESP 18
[2016-10-08] MEDS: IBUPROFEN 600 MG TAB PO SCH ×3 (00:02→12:11)
[2016-10-08 03:56] VITALS: BP 143/86; PULSE 84; RESP 18
[2016-10-08 08:00] VITALS: BP 131/62; PULSE 80; RESP 20
[2016-10-08] MEDS: SENNA/DOCUSATE NA (8.6MG/50MG) TAB PO SCH (09:00)
--- NOTE | 2016-10-08 13:11 | PD.PPDC ---
[employer] Discharge Instruction Diagnosis Final Diagnosis: s/p primary section Condition Patient Condition: Stable Diet Diet: Resume Regular Diet Activity/Restrictions Activity: May Shower Restrictions: No Exercising No Lifting Minimize Stair-climbing No Sexual Activity Nothing in the Vagina No [place] No Tampons, douche Wound/Drain Care Instructions Wound/Drain Care Instructions: Wash with soap and water Keep clean and dry Follow-up Follow-up with Physician: 2, Week/Weeks Return to clinic for [employer]IVER Instructions: Fever greater than 101 Chills Worsening abdominal pain Excessive Vaginal Bleeding More than 2 pads per hour Unable to tolerate diet OB Instructions: Breast Tenderness Depression Blurried Vision Headache Surgical Instructions: Incisional Drainage Incisional Redness AGATHA YUEN MD Oct 08, 2016 13:11
--- NOTE | 2016-10-08 13:15 | DS ---
Date/Time of Note Date/Time of Note DATE: 10/08/16 TIME: 13:13 Obstetrical Discharge Record Final Diagnosis Final Diagnosis: Term delivered Section Section: Primary Complications Augmentation: Yes Rupture of Membranes: No Condition on Discharge Physical Assessment Last Vitals: vss afebrile abdomen soft wound dry lochia min ext edematous calf no tenderness Voiding: Yes Bowel Movement: Yes Fundus: Firm Abdomen and Incision: soft wound dry Calf Tenderness: No Patient Condition: Stable AGATHA YUEN MD Oct 08, 2016 13:15
== END 2016-10-08 15:00 | disposition home or self-care (01) | DRG 765 ==
LOC: OBT 12:13 → L-D 12:14 → OBT 19:00 → L-D 19:00 → PP1 10-04 22:07
PROVIDERS: ADMIT Obstetrics & Gynecology; ATTEND Obstetrics & Gynecology
PROC: 10D00Z1 Extraction of Products of Conception, Low, Open Approach (ICD-10-PCS; principal; 2016-10-04)
PROC: 3E033VJ Introduction of Other Hormone into Peripheral Vein, Percutaneous Approach (ICD-10-PCS; 2016-10-04)
DX: O62.0 Primary inadequate contractions (principal); O99.12 Other diseases of the blood and blood-forming organs and certain disorders involving the immune mechanism complicating childbirth; D69.6 Thrombocytopenia, unspecified; O36.63X0 Maternal care for excessive fetal growth, third trimester, not applicable or unspecified; O76 Abnormality in fetal heart rate and rhythm complicating labor and delivery; O42.92 Full-term premature rupture of membranes, unspecified as to length of time between rupture and onset of labor; Z3A.38 38 weeks gestation of pregnancy; Z37.0 Single live birth
CPT/HCPCS: 76815; 76818; 85025; 85610; 85730; 86592; 86850; 86900; 86901; 86920; 87070; 87086; 87340; 88307; 90715; 94760; 99464; G0463; J0290; J0690; J1170; J2210; J2274; J2590; J2765; J3010; J7120